=== PATIENT | female | born 1965 | race Caucasian/White ===

== ENCOUNTER 2020-01-30 15:54 | Outpatient (REF) | payer OTHER, SELFPAY ==
[2020-01-30 16:44] LABS: MANUAL DIFF FLAG NO
[2020-01-30 16:51] LABS: Basophils Percent Auto 0.8 % (0-2); Eosinophils Absolute Auto 0.1 X10*3/uL (0.0-0.4); Eosinophils Percent Auto 1.2 % (0-4); Hematocrit 44.5 % (37-47); Hemoglobin 14.5 g/dl (12.0-16.0); Imm Gran Abs Auto 0.01 X10*3/uL (0.00-0.03); Imm Gran Pct Auto 0.2 % (0.0-0.4); Lymphocytes Absolute Auto 1.3 X10*3/uL (1.2-4.9); Lymphocytes Percent Auto 26.1 % (20-40); Mean Corpuscular HGB Conc 32.6 g/dl (31.0-35.0); Mean Corpuscular Volume 92.1 fL (80-98); Monocytes Absolute Auto 0.4 X10*3/uL (0.1-1.2); Monocytes Percent Auto 7.2 % (2-11); Neutrophils Absolute Auto 3.3 X10*3/uL (2.0-8.3); Neutrophils Percent Auto 64.5 % (45-73); Platelet Count 291 X10*3/uL (160-400); Red Blood Count 4.83 X10*6/uL (4.20-5.50); Red Cell Distribution Width 12.7 % (11.0-16.0); White Blood Count 5.1 X10*3/uL (4.8-10.8)
== END 2020-01-30 15:55 | disposition home or self-care (01) ==
LOC: HO.LAB 15:54
PROVIDERS: PCP Internal Medicine; Visit Provider Internal Medicine
DX: G35 Multiple sclerosis (principal)
CPT/HCPCS: 36415; 85025

== ENCOUNTER 2020-04-13 07:07 | Outpatient (REF) | payer MEDICARE, SELFPAY | END 2020-04-13 07:08 | disposition home or self-care (01) | LOC: HO.LAB 07:07 | PROVIDERS: PCP Internal Medicine; Visit Provider Internal Medicine | DX: Z20.822 Contact with and (suspected) exposure to COVID-19 (principal) | CPT/HCPCS: 36415; C9803; U0003 ==

== ENCOUNTER 2020-07-11 07:04 | Outpatient (REF) | payer MEDICARE, SELFPAY ==
[2020-07-11 08:19] LABS: MANUAL DIFF FLAG NO
[2020-07-11 08:29] LABS: Basophils Percent Auto 0.7 % (0-2); Eosinophils Absolute Auto 0.1 X10*3/uL (0.0-0.4); Eosinophils Percent Auto 2.7 % (0-4); Hematocrit 43.5 % (37-47); Hemoglobin 13.9 g/dl (12.0-16.0); Imm Gran Abs Auto 0.01 X10*3/uL (0.00-0.03); Imm Gran Pct Auto 0.2 % (0.0-0.4); Lymphocytes Absolute Auto 1.4 X10*3/uL (1.2-4.9); Lymphocytes Percent Auto 31.7 % (20-40); Mean Corpuscular Hemoglobin 29.1 pg (27.0-33.0); Mean Platelet Volume 11.6 fL (9.4-12.3); Monocytes Absolute Auto 0.4 X10*3/uL (0.1-1.2); Monocytes Percent Auto 8.5 % (2-11); Neutrophils Absolute Auto 2.5 X10*3/uL (2.0-8.3); Neutrophils Percent Auto 56.2 % (45-73); Platelet Count 260 X10*3/uL (160-400); Red Blood Count 4.78 X10*6/uL (4.20-5.50); White Blood Count 4.5 X10*3/uL (4.8-10.8)
== END 2020-07-11 07:05 | disposition home or self-care (01) ==
LOC: HO.LAB 07:04
PROVIDERS: PCP Internal Medicine; Visit Provider Psychiatry & Neurology Neurology
DX: G35 Multiple sclerosis (principal)
CPT/HCPCS: 36415; 85025

== ENCOUNTER 2020-12-12 09:34 | Outpatient (REF) | payer OTHER, SELFPAY ==
[2020-12-12 10:27] LABS: MANUAL DIFF FLAG NO
[2020-12-12 10:34] LABS: Basophils Percent Auto 0.7 % (0-2); Eosinophils Absolute Auto 0.1 X10*3/uL (0.0-0.4); Hematocrit 44.5 % (37-47); Hemoglobin 14.4 g/dl (12.0-16.0); Imm Gran Abs Auto 0.01 X10*3/uL (0.00-0.03); Imm Gran Pct Auto 0.2 % (0.0-0.4); Lymphocytes Absolute Auto 1.5 X10*3/uL (1.2-4.9); Lymphocytes Percent Auto 33.3 % (20-40); Mean Corpuscular HGB Conc 32.4 g/dl (31.0-35.0); Mean Corpuscular Hemoglobin 29.2 pg (27.0-33.0); Mean Corpuscular Volume 90.3 fL (80-98); Mean Platelet Volume 11.3 fL (9.4-12.3); Monocytes Absolute Auto 0.3 X10*3/uL (0.1-1.2); Monocytes Percent Auto 7.5 % (2-11); Neutrophils Absolute Auto 2.5 X10*3/uL (2.0-8.3); Neutrophils Percent Auto 56.3 % (45-73); Platelet Count 260 X10*3/uL (160-400); Red Blood Count 4.93 X10*6/uL (4.20-5.50); Red Cell Distribution Width 12.9 % (11.0-16.0); White Blood Count 4.4 X10*3/uL (4.8-10.8)
[2020-12-12 10:54] LABS: Alanine Aminotransferase 18 U/L (0-31); Albumin Level 4.3 g/dL (3.5-5.0); Alkaline Phosphatase 79 U/L (39-117); Aspartate Amino Transferase 17 U/L (5-31); Bilirubin Direct 0.3 mg/dL (0.0-0.5); Bilirubin Total 0.8 mg/dL (0.0-1.0); Total Protein 7.2 g/dL (6.5-8.0)
== END 2020-12-12 09:35 | disposition home or self-care (01) ==
LOC: HO.LAB 09:34
PROVIDERS: PCP Internal Medicine; Visit Provider Psychiatry & Neurology Neurology
DX: G35 Multiple sclerosis (principal)
CPT/HCPCS: 36415; 80076; 85025

== ENCOUNTER 2021-07-17 07:36 | Outpatient (REF) | payer OTHER, SELFPAY ==
[2021-07-17 08:57] LABS: Alanine Aminotransferase 23 U/L (0-31); Albumin Level 4.2 g/dL (3.5-5.0); Alkaline Phosphatase 88 U/L (39-117); Aspartate Amino Transferase 17 U/L (5-31); Bilirubin Direct 0.2 mg/dL (0.0-0.5); Bilirubin Total 0.7 mg/dL (0.0-1.0); Total Protein 7.4 g/dL (6.5-8.0)
== END 2021-07-17 07:37 | disposition home or self-care (01) ==
LOC: HO.LAB 07:36
PROVIDERS: PCP Internal Medicine; Visit Provider Psychiatry & Neurology Neurology
DX: G35 Multiple sclerosis (principal)
CPT/HCPCS: 36415; 80076

== ENCOUNTER 2022-01-14 09:37 | Outpatient (REF) | payer OTHER, SELFPAY | END 2022-01-14 09:38 | disposition home or self-care (01) | LOC: HO.MDS 09:37 | PROVIDERS: Visit Provider Psychiatry & Neurology Neurology | DX: G35 Multiple sclerosis (principal) | CPT/HCPCS: 96365; J2930 ==

== ENCOUNTER 2022-03-10 15:48 | Outpatient (REF) | payer OTHER, SELFPAY ==
[2022-03-10 18:29] LABS: Alanine Aminotransferase 22 U/L (0-31); Albumin Level 4.5 g/dL (3.5-5.0); Alkaline Phosphatase 85 U/L (39-117); Aspartate Amino Transferase 19 U/L (5-31); Bilirubin Direct 0.2 mg/dL (0.0-0.5); Bilirubin Total 0.7 mg/dL (0.0-1.0); Total Protein 7.3 g/dL (6.5-8.0)
== END 2022-03-10 15:49 | disposition home or self-care (01) ==
LOC: HO.LAB 15:48
PROVIDERS: PCP Internal Medicine; Visit Provider Psychiatry & Neurology Neurology
DX: G35 Multiple sclerosis (principal)
CPT/HCPCS: 36415; 80076

== ENCOUNTER 2023-10-28 07:30 | Outpatient (REF) | payer OTHER, SELFPAY ==
[2023-10-28 08:38] LABS: Alanine Aminotransferase 21 U/L (0-31); Albumin Level 4.1 g/dL (3.5-5.0); Alkaline Phosphatase 98 U/L (39-117); Aspartate Amino Transferase 18 U/L (5-31); Bilirubin Direct 0.3 mg/dL (0.0-0.5); Bilirubin Total 0.8 mg/dL (0.0-1.0); Total Protein 7.3 g/dL (6.5-8.0)
== END 2023-10-28 07:31 | disposition home or self-care (01) ==
LOC: HO.LAB 07:30
PROVIDERS: PCP Internal Medicine; Visit Provider Registered Nurse
DX: G35 Multiple sclerosis (principal)
CPT/HCPCS: 36415; 80076

== ENCOUNTER 2024-03-23 16:29 | Outpatient (REF) | payer OTHER, SELFPAY ==
[2024-03-23] MEDS: gadobutroL 7.5 ML VIAL IVPUSH (17:17)
== END 2024-03-23 16:30 | disposition home or self-care (01) ==
LOC: HO.MRI 16:29
PROVIDERS: PCP Internal Medicine; Visit Provider Psychiatry & Neurology Neurology
DX: G35 Multiple sclerosis (principal)
CPT/HCPCS: 70553; A9585

== ENCOUNTER 2024-11-26 12:49 | Outpatient (AMB) | payer OTHER, SELFPAY ==
--- NOTE | 2024-11-26 12:54 | A.OFFVIS_ITS ---
Intake Visit Reasons: fatigue and can barely walk HPI Comments Details: 59 years old woman with remitting relapsing multiple sclerosis. Diagnosis was made in 2016 based upon complaints of unsteadiness and loss of balance, MRI of cervical revealing a mid cervical enhancing lesion, MRI of thoracic spine revealing an upper thoracic non-enhancing demylinating type of lesion, brain MRI revealing multiple bilateral supratentorial non-enhancing demylinating type of lesions, bilaterally delayed visual evoked responses and oligoclonal bands seen in CSF and not in serum. She had taken Copaxone for many years, which was changed to Tecfidera in Mar due to lack of efficacy of Copaxone. In the fall of 2020, it was switched to Vumerity by her insurance. She is presenting with worsening lower extremity weakness, prohibiting prolonged standing. Symptoms commenced last week with a noted progression. Her medication regimen includes gabapentin and pregabalin, without any treatment specifically for rheumatoid arthritis or multiple sclerosis. Previous management involved a series of solumedrol injections; her last treatment was over three months ago. The consideration and preference have been for monthly injections to manage the symptoms effectively. Review of Systems Const Details: - Musculoskeletal: Reports inability to stand for prolonged periods, weakness in legs. - Neurological: Reports weakness in lower extremities. Physical Exam Neuro Other: Mental Status: Alert and oriented to person, place, and time. Normal attention. Normal spontaneous speech, fluency, and comprehension. Cranial Nerves: CN II: Visual garcia full to confrontation, visual acuity intact. CN III, IV, : Pupils equal, round, reactive to light and accommodation. Extraocular movements are normal. CN V: Facial sensation is normal. CN VII: Facial movements symmetrical. CN VIII: Hearing intact to bedside conversation is normal. CN IX, X: Palate elevates symmetrically. CN XI: Shoulder shrug and head turn symmetrical. CN XII: Tongue midline without atrophy or fasciculations. Extrapyramidal: Full facial expressions and blinking. No rigidity. Movements are appropriate with no tremor or abnormality. Speech: Normal; no dysarthria or tremor. Assessment & Plan Assessment & Plan (1) Multiple sclerosis: Comment: Meds used for MS: Copaxone (did not work), Tecfidera (changed by insurance), Vumerity [place] [facility] [place]: Mod severe MS, seems better than before MRI brain [place] [facility] [place] Feb 2018: ?mild more lesions than previous one, but some are less active CSF analysis [place] [facility] [place] 2016: WBC 4, RBCs 0, Glu 69, Pro 36.3, IgG ind: high, OCBs: 5+ not seen in serum EP screen at office in 2017: b/l delayed VERs MRI brain [facility] at in Dec 2015: mod severe b/l WM supratentorial non enhancing lesions, many of them are hypointense on T1, probably MS MRI C spine at [facility] in Dec 2015: C 4/5 cord lesion with mild enhancement, probably demyelinating MRI T spine at [facility] in Dec 2015: T3-4 cord lesion w/o enhancement, probably demyelination MRI brain [facility] [place] [facility] [place] Feb [place]: no enhancing lesion. Code(s): G35 - Multiple sclerosis Category: Medical (2) Whole body pain: Comment: Meds tried for pain: gabapentin, tizanidine, Tylenol Code(s): R52 - Pain, unspecified Category: Medical (3) Insomnia: Code(s): G47.00 - Insomnia, unspecified Category: Medical Qualifiers: Insomnia type: due to medical condition Qualified Code(s): G47.01 - I nsomnia due to medical condition (4) Spastic bladder: Code(s): N32.89 - Other specified disorders of bladder Category: Medical Plan Impression: a: Chronic MS b: MS exacerbation c: Neuropathic pain d: Insomnia Rec: a: Solumedrol 1g iv every month b: Gabapentin 100mg bid Orders: Referrals Infusion Center Notification G35 - Multiple sclerosis Coding Level of Care Code Est Pt Level 4 (14186) Diagnoses Multiple sclerosis G35 Whole body pain R52 Insomnia due to medical condition G47.01 Insomnia type: due to medical condition Spastic bladder N32.89
--- OUTSIDE RECORDS SUMMARY | 2024-11-26 13:31 | XMS_ITS | Clinical Summary ---
Author Organization [facility] [address] [place] [address] [place] [phone] Phone Care Team Providers Care Roadability Machine Operator Name Role Phone Andrew Crum MD Primary Care Provider [phone] Allergies Active Allergy Reactions Criticality Noted Date Comments Lisinopril 08/06/2010 Cough Medications diroximel fumarate (Vumerity) 231 mg capsule,delayed release(DR/EC) Take 2 Tablets by mouth 2 times daily. Vuremity - Neuro - Active loratadine (CLARITIN) 10 mg tablet Take 1 tablet (10 mg total) by mouth 1 (one) time each day. 12/29/2016 Active cholecalciferol (VITAMIN D-3) 25 mcg (1,000 unit) tablet Take 1 tablet (1,000 Units total) by mouth 1 (one) time each day. Active fluticasone propionate (FLONASE) 50 mcg/actuation nasal spray 1 [place] by Nasal route daily. Each nostril 05/06/2016 Active hydroCHLOROthia zide (HYDRODIURIL) 25 mg tablet Take 1 tablet (25 mg total) by mouth 1 (one) time each day. 90 tablet 1 02/16/2024 Active pregabalin (LYRICA) 100 mg capsule TAKE 1 CAPSULE BY MOUTH TWICE DAILY (MAX DAILY AMOUNT: 2 CAPSULES) 60 capsule 5 09/02/2024 Active Active Problems Problem Noted Date Diagnosed Date Colon polyp 2022 Overview (01/08/2024): 10/23 1 polyp; repeat CN 5 years Prediabetes 09/18/2020 Multiple sclerosis ([facility] V24, [facility] V28) Allergic rhinitis 12/31/2013 HTN (hypertension) 02/17/2010 Immunizations Name Administration Dates Next Due H1N1 Inj Preservative Free 06/17/2009 Influenza Quadravalent, MDCK , 0.5ml, preservative free (Flucelvax) 6mo and older 12/15/2017 Influenza Quadravalent, MDCK , 0.5ml, with preservative (Flucelvax) 6mo and older 01/10/2022,02/02/2019,03/10/2017 Influenza trivalent, with preservative (Fluzone; Afluria) 6mo and older 12/20/2020,12/01/2019,01/16/2013,2011,02/17/2010,01/02/2009 Influenza, Unspecified 12/20/2020 Tdap Tetanus diptheria acell ular pertussis (Boostrix; Adacel) 7yo and older 06/14/2019,11/19/2008 Zoster recombinant (Shingrix ) 19yo and older 02/06/2021,11/28/2020 Surgical History Surgery Date Site/Laterality Comments NECK SURGERY PROCEDURE: HISTORICAL NECK SURGERY; COMMENT: as a child BREAST BIOPSY Left PROCEDURE: BX BREAST; PERC NEEDLE CORE W/IMAG GUID; COMMENT: neg COLONOSCOPY 08/05/2016 PROCEDURE: HISTORICAL COLONOSCOPY; COMMENT: Small polyps 2: Hyperplastic 1, tubular adenoma 1. Medical History Medical History Date Comments HTN (hypertension) 01/02/2009 DX:HTN (hyper tension) Colon polyp 2022 DX:Colon polyp; COMMENT: 10/23 1 polyp; repeat CN 5 years Family History Medical History Relation Name Comments Breast cancer Neg Hx Colon cancer Neg Hx Ovarian cancer Neg Hx Relation Name Status Comments Father (Age 69) DM, htn Mother Alive gastritis Sister Alive Hysticytosis X Social History Tobacco Use Types Packs/Day Years Used Date Smoking Tobacco: Never Smokeless Tobacco: Never Tobacco Cessation:Counseling Given: Not Answered Alcohol Use Standard Drinks/Week Comments No 0 (1 standard drink = 0.6 oz pur e alcohol) Comments No Sex and Gender Information Value Date Recorded Sex Assigned at Not on file Legal Sex Female 1:14 PM EST Gender Identity Not on file Sexual Orientation Not on file Obstetrics History Para Term AB IAB SAB Ectopic Multiple Livin g Live Births 0 0 0 0 Last Filed Vital Signs Vital Sign Reading Time Taken Comments Blood Pressure 120/70 08/16/2024 2:18 PM EDT Pulse 94 08/16/2024 2:18 PM EDT Temperature 36.3 C (97.4 F) 08/16/2024 2:18 PM EDT Respiratory Rate 16 08/16/2024 2:18 PM EDT Oxygen Saturation 97% 08/16/2024 2:18 PM EDT Inhaled Oxygen Concentration - - Weight 82.6 kg (182 lb 3.2 oz) 08/16/2024 2:18 P M EDT Height 175.3 cm (5' 9 ) 08/16/2024 2:18 PM EDT Body Mass Index 26.91 08/16/2024 2:18 PM EDT Plan of Treatment Upcoming Encounters Date Type Department Care Team (Late st Contact Info) Description 03/07/2025 1:00 PM EST Office Visit Adult Medicine [facility] - [address] [phone] Andrew Crum MD [address] [place] [phone] 06/06/2025 8:30 AM EST Appointment Radiology Department - [address] [phone] Health Maintenance Due Date Last Done Comments Pneumococcal Vaccine: 50+ Years (1 of 1 - PCV) 11/05/2015 Cervical Cancer Screening: HPV 08/19/2021 08/19/2016 HIV Screening 03/11/2022 Social Influencers of Health Screening 03/11/2022 Hepatitis B Vaccines (2 of 2 - CpG 2-dose series) 01/14/2023 12/17/2022 COVID-19 Vaccine ( season) 2023 07/10/2021, 03/07/2021, 08/18/2020, Additional history exists Depression Screening 04/03/2024 Influenza Vaccine (#1) 2024 4, 12/17/2022, 01/10/2022, Additional history exists Hypertension/CHF/CAD Annual BMP Blood Test 09/02/2025 09/02/2024, 03/01/2024, 08/11/2023, Additional history exists Breast Cancer Screening 05/31/2026 05/31/19 25, 2022, 11/01/2021, Additional history exists Colorectal Cancer Screening: Colonoscopy 10/22/2027 10/21/2022 DTaP,Tdap,and Td Vaccines (3 - Td or Tdap) 06/13/2029 06/14/2019, 11/19/2008 Cholesterol Screening (Lipid Panel) 09/02/2029 09/02/2024, 08/11/2023, 08/11/2023 RSV Immunization Adult Patients (1 - 1-dose 75+ series) 2040 Hepatitis C Screening Completed 01/11/2014 Zoster Vaccines Completed 02/06/2021, 11/28/2020 HIB Vaccines Aged Out No longer eligi ble based on patient's age to complete this topic HPV Vaccines Aged Out No longer eligi ble based on patient's age to complete this topic Hepatitis A Vaccines Aged Out No long er eligible based on patient's age to complete this topic IPV Vaccines Aged Out No longer eligi ble based on patient's age to complete this topic MMR Vaccines Aged Out No longer eligi ble based on patient's age to complete this topic Meningococcal ACWY Vaccine Aged Out N o longer eligible based on patient's age to complete this topic Meningococcal B Vaccine Aged Out No l onger eligible based on patient's age to complete this topic RSV Immunization Patients Under 20 months Aged Out No longer eligible based on patient's age to complete this topic Varicella Vaccines Aged Out No longer eligible based on patient's age to complete this topic Procedures Procedure Name Priority Date/Time Associated Diagnosis Comments LIPID PANEL WITH REFLEX TO DIRECT LDL Routine 09/02/2024 8:38 AM EDT High cholesterol HEMOGLOBIN A1C Routine 09/02/2024 8:38 AM EDT Prediabetes COMPREHENSIVE METABOLIC PANEL Routine 09/02/2024 8:38 AM EDT Primary hypertension Prediabetes Bilateral lower extremity edema MG MAMMO DIGITAL SCREENING W MIKE BILAT Routine 05/31/2024 3:28 PM EST Encounter for screening mammogram for breast cancer COLONOSCOPY Routine 10/21/2022 HPV Routine 08/19/2016 HEPATITIS C SCREENING Routine 01/11/2014 from Last 3 Months or Most Recently Relevant to Health Maintenance Results * (ABNORMAL) Lipid panel with reflex to direct LDL (09/02/2024 8:38 AM EDT) Cholesterol 210(H) 0 - 200 mg/dL LAB CHEMISTRY METHOD 09/02/2024 2:41 PM EDT [facility] Triglycerides 77 0 - 150 mg/dL LAB CHEMISTRY METHOD 09/02/2024 2:41 PM EDT [facility] HDL 66 >=40 mg/dL LAB CHEMISTRY METHOD 09/02/2024 2:41 PM EDT [facility] LDL Calculated 129(H) 0 - 100 mg/dL LAB CHEMISTRY METHOD 09/02/2024 2:41 PM EDT [facility] VLDL Cholesterol Mikie 15.4 mg/dL LAB CHEMISTRY METHOD 09/02/2024 2:41 PM EDT [facility] Non HDL Chol. (LDL+VLDL) 144 <145 mg/dL LAB CHEMISTRY METHOD 09/02/2024 2:41 PM EDT [facility] Chol/HDL Ratio 3.2 0.0 - 4.4 LAB CHEMISTRY METHOD 09/02/2024 2:41 PM EDT [facility] Blood Venous blood specimen / Unknown Venipuncture / Unknown 09/02/2024 8:38 AM EDT 09/02/2024 8:38 AM EDT us Andrew Crum MD LAB BLOOD ORDERABLES Final Resu lt [facility] [address] [place] [address], [place] [phone] * Hemoglobin A1c (09/02/2024 8:38 AM EDT) [facility] Hemoglobin A1C 5.2 <6.5 % LAB CHEMISTRY METHOD 09/02/2024 1:32 PM EDT [facility] Mean Bld Glu Estim. 103 mg/dL LAB CHEMISTRY METHOD 09/02/2024 1:32 PM EDT [facility] Blood Venous blood specimen / Unknown Venipuncture / Unknown 09/02/2024 8:38 AM EDT 09/02/2024 8:38 AM EDT us Andrew Crum MD LAB BLOOD ORDERABLES Final Resu lt [facility] [address] [place] [address], * Comprehensive metabolic panel (09/02/2024 8:38 AM EDT) [facility] Sodium 142 133 - 145 mmol/L LAB CHEMISTRY METHOD 09/02/2024 2:41 PM [facility] Potassium 4.0 3.5 - 5.5 mmol/L LAB CHEMISTRY METHOD 09/02/2024 2:41 PM T [facility] Chloride 104 96 - 110 mmol/L LAB CHEMISTRY METHOD 09/02/2024 2:41 PM [facility] CO2 31 21 - 32 mmol/L LAB CHEMISTRY METHOD 09/02/2024 2:41 PM T [facility] Anion Gap 7 3 - 11 LAB CHEMISTRY METHOD 09/02/2024 2:41 PM [facility] Glucose 96 70 - 100 mg/dL LAB CHEMISTRY METHOD 09/02/2024 2:41 PM T [facility] BUN 16 5 - 25 mg/dL LAB CHEMISTRY METHOD 09/02/2024 2:41 PM [facility] Creatinine 0.76 0.50 - 1.10 mg/dL LAB CHEMISTRY METHOD 09/02/2024 2:41 PM [facility] eGFR 91 >=60 mL/min/1. 73m2 LAB CHEMISTRY METHOD 09/02/2024 2:41 PM [facility] Comment:Calculation based on the Chronic Kidney Disease Epidemiology Collaboration (CKD-EPI) equation refit without adjustment for race. BUN/Creatinine Ratio 21.1 LAB CHEMISTRY METHOD 09/02/2024 2:41 PM [facility] Calcium 9.2 8.5 - 10.5 mg/dL LAB CHEMISTRY METHOD 09/02/2024 2:41 PM [facility] AST (SGOT) 17 10 - 42 unit/L LAB CHEMISTRY METHOD 09/02/2024 2:41 PM [facility] ALT (SGPT) 25 10 - 60 unit/L LAB CHEMISTRY METHOD 09/02/2024 2:41 PM [facility] Alkaline Phosphatase 92 42 - 121 unit/L LAB CHEMISTRY METHOD 09/02/2024 2:41 PM [facility] Total Protein 6.8 6.0 - 8.0 g/dL LAB CHEMISTRY METHOD 09/02/2024 2:41 PM [facility] Albumin 3.5 3.2 - 5.0 g/dL LAB CHEMISTRY METHOD 09/02/2024 2:41 PM [facility] Total Bilirubin 0.6 0.0 - 1.4 mg/dL LAB CHEMISTRY METHOD 09/02/2024 2:41 PM [facility] Blood Venous blood specimen / Unknown Venipuncture / Unknown 09/02/2024 8:38 AM EDT 09/02/2024 8:38 AM EDT us Andrew Crum MD LAB BLOOD ORDERABLES Final Resu lt [facility] ([facility]) [facility] [address] [place] [address], * MG Mammo Digital Screening w Mike bilat (05/31/2024 3:28 PM EST) Anatomical Region Laterality Modality Breast Bilateral Mammography 06/03/2024 2:09 PM EST Impressions 06/03/2024 3:13 PM EST 1. No mammographic evidence of malignancy 2. Heterogeneous breast parenchyma BI-RADS CATEGORY: 2 - BENIGN RECOMMENDATION: Screening bilateral mammogram is recommended in 1 year. Mammo Location: [facility], [address] [place] [address], [phone], . -------- FINAL REPORT -------- Dictated By: Sree Caldwell Dictated Date: 06/03/2024 14:09 ET Assigned Physician: Sree Caldwell Reviewed and Electronically Signed By: Sree Caldwell Signed Date: 06/03/2024 15:13 ET Workstation ID: [id number] Transcribed By: Self Edit Transcribed Date: 06/03/2024 14:13 ET Narrative 06/03/2024 3:13 PM EST A BILATERAL DIGITAL 3D SCREENING MAMMOGRAPHY HISTORY: Routine screening. No family history of breast cancer. COMPARISON: Multiple priors dating back to 10/25/2019 Technique: Bilateral full field digital mammography (3D) was performed using standard CC and MLO projections CAD was used to evaluate this mammogram. FINDINGS: Right: No suspicious masses, groups of microcalcification or areas of architectural distortion identified. Stable typically benign parenchymal asymmetries. Left: No suspicious masses, groups of microcalcification or areas of architectural distortion identified. Stable typically benign parenchymal asymmetries. Upper outer posterior depth biopsy marker. Medial breast biopsy marker. BREAST DENSITY: C - The breasts are heterogeneously dense which may obscure small masses. Procedure Note Sree Caldwell MD - 06/03/2024 A BILATERAL DIGITAL 3D SCREENING MAMMOGRAPHY HISTORY: Routine screening. No family history of breast cancer. COMPARISON: Multiple priors dating back to 10/25/2019 Technique: Bilateral full field digital mammography (3D) was performedusing standard CC and MLO projections CAD was used to evaluate this mammogram. FINDINGS: Right: No suspicious masses, groups of microcalcification or areas ofarchitectural distortion identified. Stable typically benign parenchymalasymmetries. Left: No suspicious masses, groups of microcalcification or areas ofarchitectural distortion identified. Stable typically benign parenchymalasymmetries. Upper outer posterior depth biopsy marker. Medial breastbiopsy marker. BREAST DENSITY: C - The breasts are heterogeneously dense which mayobscure small masses. IMPRESSION: 1. No mammographic evidence of malignancy 2. Heterogeneous breast parenchyma BI-RADS CATEGORY: 2 - BENIGN RECOMMENDATION: Screening bilateral mammogram is recommended in 1 year. Mammo Location: [facility], [address] [place] [address], [phone], . -------- FINAL REPORT -------- Dictated By: Sree Caldwell Dictated Date: 06/03/2024 14:09 ET Assigned Physician: Sree Caldwell Reviewed and Electronically Signed By: Sree Caldwell Signed Date: 06/03/2024 15:13 ET Workstation ID: [id number] Transcribed By: Self Edit Transcribed Date: 06/03/2024 14:13 ET Andrew Crum MD IMG BI PROCEDURES Final Result * Colonoscopy (10/21/2022) [facility] Colonoscopy no interpretation , abstracted Anatomical Region Laterality Modality Other [facility] Provider HEALTH MAINTENANCE Final Result * Cervical Cancer Screening: HPV (08/19/2016) [facility] Cervical Cancer Screening: HPV negative,a bstracted [facility] Provider HEALTH MAINTENANCE Final Result * Hepatitis C Screening (01/11/2014) [facility] Hepatitis C Screening ABSTRACTED [facility] Reuben WISE HEALTH MAINTENANCE Final Result from Last 3 Months or Most Recently Relevant to Health Maintenance Insurance [employer] Care Teams Roadability Machine Operator Relationship Specialty Start Date End Date Andrew Crum MD [address] [place] [id number] PCP - General Internal Medicine 05/21/15
--- OUTSIDE RECORDS SUMMARY | 2024-11-26 13:31 | XMS_ITS | Encounter Summary ---
Author Organization [employer] Address [address] [facility] [address] [place] [address] Care Team Providers Care Language Therapist Name Role Phone Unavailable Primary Care Provider Unavailabl e Encounter Details Date Type Department Care Team (Latest Contact Info) Description 11/06/2018 Abstract [facility] CONVERSIONS Dental, Provider, DDS Social History Tobacco Use Types Packs/Day Years Used Date Smoking Tobacco: Never Assessed Comments Unknown Sex and Gender Information Value Date Recorded Sex Assigned at Female 01/31/2022 10:35 AM EDT Legal Sex Female 10:35 AM EDT Gender Identity Female 01/31/2022 10:35 AM EDT Sexual Orientation Straight 01/31/2022 10 :35 AM EDT documented as of this encounter Plan of Treatment Not on file documented as of this encounter Visit Diagnoses Not on filedocumented in this encounter
--- OUTSIDE RECORDS SUMMARY | 2024-11-26 13:31 | XMS_ITS | Clinical Summary ---
Author Organization [employer] Address [address] [facility] [address] [place] [address] Care Team Providers Care Boiler Fireman Name Role Phone Unavailable Primary Care Provider Unavailabl e Social History Tobacco Use Types Packs/Day Years Used Date Smoking Tobacco: Never Assessed Comments Unknown Sex and Gender Information Value Date Recorded Sex Assigned at Female 01/31/2022 10:35 AM EDT Legal Sex Female 10:35 AM EDT Gender Identity Female 01/31/2022 10:35 AM EDT Sexual Orientation Straight 01/31/2022 10 :35 AM EDT Plan of Treatment Health Maintenance Due Date Last Done Comments CT Colonography 1965 Colonoscopy 1965 Colorectal Cancer Screening 1965 Depression Screening 1965 FIT DNA/Cologuard 1965 FIT 1965 FOBT 1965 Sigmoidoscopy 1965 Disability Screening 1965 Alcohol/Substance Use Screening 1977 Tobacco Screening 1977 DTaP/Tdap/Td Vaccines (1 - Tdap) 1984 Hepatitis B Vaccines (1 of 3 - 19+ 3-dose series) 1984 Pap Smear 1986 Cervical Cancer Screening 11/05/1995 HPV/Cotest 11/05/1995 Mammogram 2005 Pneumococcal Vaccine: 50+ Ye ars (1 of 1 - PCV) 11/05/2015 Zoster Vaccines (1 of 2) 11/05/2015 COVID-19 Vaccine ( - 2023-2 5 season) 2023 Influenza Vaccine (#1) 2024 RSV Patients and Pa tients Aged 60 years or older (1 - 1-dose 75+ series) 2040 HIB Vaccines Aged Out No longer eligi [...] patient's age to complete this topic Meningococcal Vaccine Aged Out No shireen hector eligible based on patient's age to complete this topic RSV under 20 months Aged Out No longe r eligible based on patient's age to complete this topic Rotavirus Vaccines Aged Out No longer eligible based on patient's age to complete this topic
== END 2024-11-26 13:12 | disposition home or self-care (01) ==
LOC: HO.HSM 12:49
PROVIDERS: PCP Internal Medicine; Visit Provider Psychiatry & Neurology Neurology
DX: G35 Multiple sclerosis (principal); R52 Pain, unspecified; G47.01 Insomnia due to medical condition; N32.89 Other specified disorders of bladder
CPT/HCPCS: 99214

== ENCOUNTER 2025-02-20 14:13 | Outpatient (AMB) | payer OTHER, SELFPAY ==
--- NOTE | 2025-02-20 14:54 | MHC.OFFVIS ---
Intake Visit Reasons: 3M MS Allergies No Known Allergies Allergy (Verified 12/16/24 09:20) HPI Comments Details: 59 years old woman with remitting relapsing multiple sclerosis. Diagnosis was made in 2015 based upon complaints of unsteadiness and loss of balance, MRI of cervical revealing a mid cervical enhancing lesion, MRI of thoracic spine revealing an upper thoracic non-enhancing demylinating type of lesion, brain MRI revealing multiple bilateral supratentorial non-enhancing demylinating type of lesions, bilaterally delayed visual evoked responses and oligoclonal bands seen in CSF and not in serum. She had taken Copaxone for many years, which was changed to Tecfidera in Mar due to lack of efficacy of Copaxone. In the fall of 2020, it was switched to Vumerity by her insurance. She is presenting for follow-up of chronic muscle spasms and difficulty walking. The patient has a long-standing history of walking difficulties, characterized by a slow gait, for many years. The current symptoms are described as spasms rather than pain, with associated tightness in the hip section and pressure in the lower spinal column, which limits the patient's ability to stand for long periods. A previous medication used in the context of an evaluation for multiple sclerosis provided no benefit. The patient also has an upcoming IV therapy appointment, which is reported to be unhelpful. The patient's current medications include pregabalin 100 mg twice a day, hydrochlorothiazide for blood pressure, and vitamin D3. The patient is not taking gabapentin. Review of Systems Narrative - Musculoskeletal: Reports spasms, tightness in the hip area, and pressure in the lower back. - Neurological: Reports chronic difficulty walking with a slow gait and inability to stand for long periods. - Constitutional: Reports not feeling well. Physical Exam Neuro Other: Mental Status: Alert and oriented to person, place, and time. Normal attention. Normal spontaneous speech, fluency, and comprehension. Cranial Nerves: CN II: Visual garcia full to confrontation, visual acuity intact. CN III, IV, : Pupils equal, round, reactive to light and accommodation. Extraocular movements are normal. CN V: Facial sensation is normal. CN VII: Facial movements symmetrical. CN VIII: Hearing intact to bedside conversation is normal. CN IX, X: Palate elevates symmetrically. CN XI: Shoulder shrug and head turn symmetrical. CN XII: Tongue midline without atrophy or fasciculations. Extrapyramidal: Full facial expressions and blinking. No rigidity. Movements are appropriate with no tremor or abnormality. Speech: Normal; no dysarthria or tremor. Assessment & Plan Assessment & Plan (1) Multiple sclerosis: Comment: Meds used for MS: Copaxone (did not work), Tecfidera (changed by insurance), Vumerity MRI brain WO at [facility] in Mar 2024: Mod severe MS, seems better than before MRI brain at [facility] in Feb 2018: ?mild more lesions than previous one, but some are less active CSF analysis at [facility] In Jun 2016: WBC 4, RBCs 0, Glu 69, Pro 36.3, IgG ind: high, OCBs: 5+ not seen in serum EP screen at office in 2017: b/l delayed VERs MRI brain WWO at in Dec 2015: mod severe b/l WM supratentorial non enhancing lesions, many of them are hypointense on T1, probably MS MRI C spine at [facility] in Dec 2015: C 4/5 cord lesion with mild enhancement, probably demyelinating MRI T spine at [facility] in Dec 2015: T3-4 cord lesion w/o enhancement, probably demyelination MRI brain WWO at [facility] in Feb 2017: no enhancing lesion. Code(s): G35 - Multiple sclerosis Category: Medical (2) Spastic bladder: Code(s): N32.89 - Other specified disorders of bladder Category: Medical (3) Insomnia: Code(s): G47.00 - Insomnia, unspecified Category: Medical Qualifiers: Insomnia type: due to medical condition Qualified Code(s): G47.01 - Insomnia due to medical condition (4) Whole body pain: Comment: Meds tried for pain: gabapentin, tizanidine, Tylenol Code(s): R52 - Pain, unspecified Category: Medical (5) Gait disorder: Code(s): R26.9 - Unspecified abnormalities of gait and mobility Category: Medical Plan I discussed with the patient and the patient's milk house worker that the spasticity and gait difficulty are chronic and that there is no specific medication to cure the condition. I explained that prior medications used for an MS workup were not effective. I recommended physical therapy to improve back muscle strength. We agreed to a trial of a muscle relaxant, and I prescribed a one-month supply, instructing them to call if it is beneficial. I advised that the upcoming IV therapy should be discontinued if it is not helping. I will see the patient for a follow-up visit in three months. Orders: Orders OT Evaluation and Treatment Today R26.9 - Unspecified abnormalities of gait and mobility PT Evaluation and Treatment Today R26.9 - Unspecified abnormalities of gait and mobility Medications: New baclofen 20 mg PO BID 60 tabs 0RF Coding Level of Care Code Est Pt Level 3 (60960) Diagnoses Multiple sclerosis G35 Spastic bladder N32.89 Insomnia due to medical condition G47.01 Insomnia type: due to medical condition Whole body pain R52 Gait disorder R26.9
--- OUTSIDE RECORDS SUMMARY | 2025-02-20 19:37 | XMS_ITS | Clinical Summary ---
Author Organization [facility] Address [address] [place] [phone] Phone Care Team Providers Care Road Equipment Operator Name Role Phone Andrew Crum MD Primary Care Provider [phone] Allergies Active Allergy Reactions Criticality Noted Date [...] propionate (FLONASE) 50 mcg/actuation nasal spray 1 [place] by Nasal route daily. Each nostril 05/06/2016 Active pregabalin (LYRICA) 100 mg capsule TAKE 1 CAPSULE BY MOUTH TWICE DAILY (MAX DAILY AMOUNT: 2 CAPSULES) 60 capsule 5 09/02/2024 Active hydroCHLOROthia zide (HYDRODIURIL) 25 mg tablet Take 1 tablet (25 mg total) by mouth 1 (one) time each day. 90 tablet 12/19/2024 Active Active Problems Problem Noted Date Diagnosed Date Colon polyp 2022 Overview (01/08/2024): 10/23 1 polyp; repeat CN 5 years Prediabetes 09/18/2020 Multiple sclerosis 05/06/2016 Allergic rhinitis 12/31/2013 HTN (hypertension) 02/17/2010 Encounters Date Type Department Care Team Description 02/01/2025 Nurse Triage Adult Medicine [address] [phone] Andrew Crum MD from Last 3 Months Immunizations Immunization Administration Dates Next Due H1N1 Inj Preservative [...] 1:00 PM EST Office Visit Adult Medicine [address] [phone] Andrew Crum MD [address] [place] [address] 06/06/2025 8:30 AM EST Appointment Radiology Department - [address] [phone] Health Maintenance Due Date Last Done Comments Pneumococcal Vaccine: 50+ Years (1 of 1 - PCV) 11/05/2015 Cervical Cancer Screening: HPV 08/19/2021 08/19/2016 HIV Screening 03/11/2022 Social Influencers of Health Screening 03/11/2022 Hepatitis B Vaccines (2 of 2 - CpG 2-dose series) 01/14/2023 12/17/2022 Depression Screening 04/03/2024 COVID-19 Vaccine ( season) 2024 07/10/2021, 03/07/2021, 08/18/2020, Additional history exists Influenza Vaccine (#1) 2024 , 12/17/2022, 01/10/2022, Additional history exists Hypertension/CHF/CAD Annual [...] Procedure Name Priority Date/Time Associated Diagnosis Comments COMPREHENSIVE METABOLIC PANEL Routine 09/02/2024 8:38 AM EDT Primary hypertension Prediabetes Bilateral lower extremity edema LIPID PANEL WITH REFLEX TO DIRECT LDL Routine 09/02/2024 8:38 AM EDT High cholesterol MG MAMMO DIGITAL SCREENING W MIKE BILAT [...] LAB CHEMISTRY METHOD 09/02/2024 2:41 PM EDT [facility] Triglycerides 77 0 - 150 mg/dL LAB CHEMISTRY METHOD 09/02/2024 2:41 PM EDT [facility] HDL 66 >=40 mg/dL LAB CHEMISTRY METHOD 09/02/2024 2:41 PM EDT [facility] LDL Calculated 129(H) 0 - 100 mg/dL LAB CHEMISTRY METHOD 09/02/2024 2:41 PM EDT [facility] VLDL Cholesterol Mikie 15.4 mg/dL LAB CHEMISTRY METHOD 09/02/2024 2:41 PM EDT [facility] Non HDL Chol. (LDL+VLDL) 144 <145 mg/dL LAB CHEMISTRY METHOD 09/02/2024 2:41 PM EDT [facility] Chol/HDL Ratio 3.2 0.0 - 4.4 LAB CHEMISTRY METHOD 09/02/2024 2:41 PM EDT [facility] Blood Venous blood specimen / Unknown Venipuncture / Unknown 09/02/2024 8:38 AM EDT 09/02/2024 8:38 AM EDT us Andrew Crum MD LAB BLOOD ORDERABLES Final Resu lt [facility] [address] [place] [address], * Comprehensive metabolic panel (09/02/2024 8:38 AM EDT) Sodium 142 133 - 145 mmol/L LAB CHEMISTRY METHOD 09/02/2024 2:41 PM [facility] Potassium 4.0 3.5 - 5.5 mmol/L LAB CHEMISTRY METHOD 09/02/2024 2:41 PM [facility] Chloride 104 96 - 110 mmol/L LAB CHEMISTRY METHOD 09/02/2024 2:41 PM [facility] CO2 31 21 - 32 mmol/L LAB CHEMISTRY METHOD 09/02/2024 2:41 PM [facility] Anion Gap 7 3 - 11 LAB CHEMISTRY METHOD 09/02/2024 2:41 PM [facility] Glucose 96 70 - 100 mg/dL LAB CHEMISTRY METHOD 09/02/2024 2:41 PM [facility] BUN 16 5 - 25 mg/dL LAB CHEMISTRY METHOD 09/02/2024 2:41 PM [facility] Creatinine 0.76 0.50 - 1.10 mg/dL LAB CHEMISTRY METHOD 09/02/2024 2:41 PM [facility] eGFR 91 >=60 mL/min/1. 73m2 LAB CHEMISTRY METHOD 09/02/2024 2:41 PM [facility] Comment:Calculation based on the Chronic Kidney Disease Epidemiology Collaboration (CKD-EPI) equation refit without adjustment for race. BUN/Creatinine Ratio 21.1 LAB CHEMISTRY METHOD 09/02/2024 2:41 PM [facility] Calcium 9.2 8.5 - 10.5 mg/dL LAB CHEMISTRY METHOD 09/02/2024 2:41 PM [facility] AST (SGOT) 17 10 - 42 unit/L LAB CHEMISTRY METHOD 09/02/2024 2:41 PM EDT [facility] ALT (SGPT) 25 10 - 60 unit/L LAB CHEMISTRY METHOD 09/02/2024 2:41 PM EDT [facility] Alkaline Phosphatase 92 42 - 121 unit/L LAB CHEMISTRY METHOD 09/02/2024 2:41 PM EDT [facility] Total Protein 6.8 6.0 - 8.0 g/dL LAB CHEMISTRY METHOD 09/02/2024 2:41 PM EDT [facility] Albumin 3.5 3.2 - 5.0 g/dL LAB CHEMISTRY METHOD 09/02/2024 2:41 PM EDT [facility] Total Bilirubin 0.6 0.0 - 1.4 mg/dL LAB CHEMISTRY METHOD 09/02/2024 2:41 PM EDT [facility] Blood Venous blood specimen / Unknown Venipuncture / Unknown 09/02/2024 8:38 AM EDT 09/02/2024 8:38 AM EDT us Andrew Crum MD LAB BLOOD ORDERABLES Final Resu lt [facility] [address] [place] [address], [place] [phone] * MG Mammo Digital Screening w Mike bilat (05/31/2024 3:28 PM EST) Anatomical Region Laterality Modality Breast Bilateral Mammography 06/03/2024 2:09 PM EST Impressions 06/03/2024 3:13 PM EST 1. No mammographic evidence of malignancy 2. Heterogeneous breast parenchyma BI-RADS CATEGORY: 2 - BENIGN RECOMMENDATION: Screening bilateral mammogram is recommended in 1 year. Mammo Location: [facility], [address] [place] [address], [id number], . -------- FINAL REPORT -------- Dictated By: Sree Caldwell Dictated Date: 06/03/2024 14:09 ET Assigned Physician: Sree Caldwell Reviewed and Electronically Signed By: Sree Caldwell Signed Date: 06/03/2024 15:13 ET Workstation ID: [id number] Transcribed By: Self Edit Transcribed Date: 06/03/2024 [...] is recommended in 1 year. Mammo Location: [facility], [address] [place] [address], [id number], . -------- FINAL REPORT -------- Dictated By: Sree Caldwell Dictated Date: 06/03/2024 14:09 ET Assigned Physician: Sree Caldwell Reviewed and Electronically Signed By: Sree Caldwell Signed Date: 06/03/2024 15:13 ET Workstation ID: [id number] Transcribed By: Self Edit Transcribed Date: 06/03/2024 14:13 ET Andrew Crum MD IMG BI PROCEDURES Final Result * Colonoscopy (10/21/2022) [facility] Colonoscopy no interpretation , abstracted Anatomical Region Laterality Modality Other Historical Provider HEALTH MAINTENANCE Final Result * Cervical Cancer Screening: HPV (08/19/2016) [facility] Cervical Cancer Screening: HPV negative,a bstracted Historical Provider HEALTH MAINTENANCE Final Result * Hepatitis C Screening (01/11/2014) [facility] Hepatitis C Screening ABSTRACTED Historical Provider HEALTH MAINTENANCE Final Result from Last 3 Months or Most Recently Relevant to Health Maintenance Insurance [facility] Care Teams Road Equipment Operator Relationship Specialty Start Date End Date Andrew Crum MD [address] [place] [phone] PCP - General Internal Medicine 05/21/15
--- OUTSIDE RECORDS SUMMARY | 2025-02-20 19:37 | XMS_ITS | Encounter Summary ---
Author Organization [employer] Address [address] [place] [address] Care Team Providers Care Instructor Trainer Canine Service Name Role Phone Unavailable Primary Care Provider Unavailabl e Encounter Details Date Type Department Care Team (Latest Contact Info) Description 11/06/2018 Abstract [facility] CONVERSIONS Dental, Provider, DDS Social History Tobacco [...]
--- OUTSIDE RECORDS SUMMARY | 2025-02-20 19:37 | XMS_ITS | Clinical Summary ---
Author Organization [employer] Address [address] [place] [address] Care Team Providers Care Operations Logistics Analyst Name Role Phone Unavailable Primary Care Provider [...] of 2) 11/05/2015 COVID-19 Vaccine ( - 2024-2 6 season) 2024 Influenza Vaccine (#1) 2024 RSV Patients and [...]
== END 2025-02-20 15:13 | disposition home or self-care (01) ==
LOC: HO.HSM 14:13
PROVIDERS: PCP Internal Medicine; Visit Provider Psychiatry & Neurology Neurology
DX: G35.D Multiple sclerosis, unspecified (principal); N32.89 Other specified disorders of bladder; G47.01 Insomnia due to medical condition; R52 Pain, unspecified; R26.9 Unspecified abnormalities of gait and mobility
CPT/HCPCS: 99213